=== PATIENT | female | born 1975 | race Caucasian/White ===

== ENCOUNTER 2017-11-25 21:54 | Emergency (ER) | payer MEDICAID ==
[~2017-11-25] VITALS: Ht 165.1 cm; Wt 74.8 kg
[2017-11-25 21:54] VITALS: BP 115/73
== END 2017-11-26 00:26 | disposition home or self-care (01) ==
LOC: ER 21:54
DX: L03.021 Acute lymphangitis of right finger (principal)
CPT/HCPCS: A4606; A6402; Z7610

== ENCOUNTER 2018-01-29 13:44 | Emergency (ER) | payer MEDICAID ==
--- NOTE | 2018-01-29 19:00 | NUR ---
pt left without being triaged.
== END 2018-01-29 19:08 | disposition left against medical advice (07) ==
LOC: ER 13:46
DX: Z53.21 Procedure and treatment not carried out due to patient leaving prior to being seen by health care provider (principal)